=== PATIENT | female | born 1965 | race Caucasian/White ===

== ENCOUNTER → 2021-05-09 | Day surgery (SDC) | payer OTHER ==
[~2021-05-09] MED LIST: ATORVASTATIN CA20 MG PO; METFORMIN HCL500 MG PO; NEURONTIN 100100 MG PO; OSTEO BI-FLEX1 EAC1 PO; SPIRONOLACTONE100 MG PO; SUPER B COMPLE1 EAC1 PO; VITAMIN D3125 MCG PO; VOLTAREN ARTHRI20 GM TP
== END | disposition home or self-care (01) ==
LOC: OR 06:19
DX: K64.1 Second degree hemorrhoids (principal); K64.4 Residual hemorrhoidal skin tags; E11.9 Type 2 diabetes mellitus without complications; E28.2 Polycystic ovarian syndrome; M19.90 Unspecified osteoarthritis, unspecified site; E66.8 Other obesity; Z80.0 Family history of malignant neoplasm of digestive organs; Z68.35 Body mass index [BMI] 35.0-35.9, adult; Z88.5 Allergy status to narcotic agent; Z79.84 Long term (current) use of oral hypoglycemic drugs; Z79.899 Other long term (current) drug therapy
CPT/HCPCS: 82962; J2704; J7040